=== PATIENT | male | born 1975 | race Caucasian/White ===

== ENCOUNTER 2020-09-01 16:49 | Inpatient (IN) ==
[2020-09-01] MEDS ORDERED: Ipratropium/Albuterol Neb 3 ML IH ONE (18:31)
[2020-09-01] MEDS ORDERED: 0.9 % Sodium Chloride 1,000 ML IVC ONE (18:31)
[2020-09-01 19:13] LABS: Basophils % 0.1 %; Eosinophils # 0.1 K/mcL (0.0-0.6); Eosinophils % 0.3 %; Hematocrit 39.2 % (37.5-50.1); Hemoglobin 12.6 g/dL (12.9-16.9); Lymphocytes # 0.9 K/mcL (0.6-4.6); Lymphocytes % 4.5 %; Mean Corpuscular HGB Conc 32.1 g/dL (31.6-35.5); Mean Corpuscular Hemoglobin 28.8 pg (28.0-33.3); Mean Corpuscular Volume 89.5 fL (83.0-100.0); Mean Platelet Volume 9.1 fL (9.4-12.4); Monocytes # 2.2 K/mcL (0.0-1.3); Monocytes % 11.5 %; Neutrophils # 15.7 K/mcL (1.6-8.9); Platelet Count 368 K/mcL (140-400); Red Blood Count 4.38 M/mcL (4.19-5.50); Red Cell Distribution Width 12.9 % (11.5-14.5); Segmented Neutrophils % 82.6 %; White Blood Count 18.9 K/mcL (4.3-11.1)
[2020-09-01 19:34] LABS: Alanine Aminotransferase 52 Units/L (7-52); Albumin 3.6 g/dL (3.5-5.7); Alkaline Phosphatase 140 Units/L (34-104); Aspartate Amino Transferase 22 Units/L (13-39); BUN/Creatinine Ratio 23 (6-26); Bilirubin,Direct 0.1 mg/dL (0.0-0.2); Bilirubin,Indirect 0.3 mg/dL (0.0-1.0); Bilirubin,Total 0.4 mg/dL (0.3-1.0); Blood Urea Nitrogen 16 mg/dL (6-20); Calcium 13.7 mg/dL (8.6-10.3); Carbon Dioxide 35 mEq/L (23-29); Chloride 90 mEq/L (98-107); Globulin 3.5 g/dL (2.4-3.5); Glucose 154 mg/dL (70-105); Osmolality,Calculated 274 (280-300); Potassium 4.1 mEq/L (3.5-5.1); Sodium 130 mEq/L (136-145); Total Protein 7.1 g/dL (6.4-8.9); Troponin I < 0.03 ng/mL (< 0.04); eGFR For African Americans > 60 (> 60); eGFR For Non-African Americans > 60 (> 60)
[2020-09-01] MEDS ORDERED: Dexamethasone 4 MG/ML VIAL IVP ONE (20:18)
[2020-09-01] MEDS ORDERED: Naloxone 0.4 MG/ML INJ IVP PRN (22:51)
[2020-09-01] MEDS ORDERED: Ondansetron 4 MG/2 ML VIAL IVP PRN (22:51)
[2020-09-01] MEDS ORDERED: Melatonin 3 MG TABLET PO PRN (22:51)
[2020-09-01] MEDS ORDERED: Zoledronic Acid (Zometa) 4 MG in 0.9 % Sodium Chloride 100 ML IV ONE (23:05)
[2020-09-01] MEDS: Nicotine 21 MG PATCH.TD24 TD SCH (23:48)
[2020-09-02 02:11] LABS: Basophils % 0.1 %; Eosinophils % 0.1 %; Hematocrit 38.7 % (37.5-50.1); Hemoglobin 12.5 g/dL (12.9-16.9); Immature Granulocytes % 0.7 % (0-4); Lymphocytes # 0.9 K/mcL (0.6-4.6); Lymphocytes % 5.4 %; Mean Corpuscular HGB Conc 32.3 g/dL (31.6-35.5); Mean Corpuscular Hemoglobin 29.1 pg (28.0-33.3); Monocytes # 2.1 K/mcL (0.0-1.3); Monocytes % 12.4 %; Neutrophils # 13.6 K/mcL (1.6-8.9); Platelet Count 342 K/mcL (140-400); Segmented Neutrophils % 81.3 %; White Blood Count 16.7 K/mcL (4.3-11.1)
[2020-09-02 02:20] LABS: INR 1.2; Prothrombin Time 13.7 Seconds (9.4-12.1)
[2020-09-02 02:39] LABS: Alanine Aminotransferase 45 Units/L (7-52); Albumin 3.4 g/dL (3.5-5.7); Alkaline Phosphatase 121 Units/L (34-104); Aspartate Amino Transferase 18 Units/L (13-39); BUN/Creatinine Ratio 22 (6-26); Bilirubin,Total 0.4 mg/dL (0.3-1.0); Blood Urea Nitrogen 16 mg/dL (6-20); Calcium 14.2 mg/dL (8.6-10.3); Carbon Dioxide 36 mEq/L (23-29); Chloride 95 mEq/L (98-107); Globulin 3.4 g/dL (2.4-3.5); Glucose 111 mg/dL (70-105); Magnesium 1.8 mg/dL (1.6-2.6); Osmolality,Calculated 280 (280-300); Phosphorous 3.1 mg/dL (2.7-4.5); Potassium 4.3 mEq/L (3.5-5.1); Sodium 134 mEq/L (136-145); Total Protein 6.8 g/dL (6.4-8.9); eGFR For African Americans > 60 (> 60); eGFR For Non-African Americans > 60 (> 60)
[2020-09-02] MEDS: Ipratropium/Albuterol Neb 3 ML IH SCH ×4 (05:03→22:58)
[2020-09-02] MEDS: Dexamethasone 4 MG/ML VIAL IVP SCH ×4 (05:06→23:48)
[2020-09-02 07:04] LABS: Bilirubin,Urine Negative (Negative); Blood,Urine Negative (Negative); Clarity,Urine Clear (Clear); Color,Urine Colorless (Yellow); Glucose,Urine (UA) Normal (Normal); Ketones,Urine Negative (Negative); Leukocyte Esterase,Urine Negative (Negative); Nitrite,Urine Negative (Negative); PH,Urine 6.5 pH Units (5.0-8.0); Protein,Urine Negative (Neg-Trace); Specific Gravity,Urine 1.007 (1.010-1.025); Urobilinogen,Urine Normal (Normal)
[2020-09-02] MEDS ORDERED: 0.9 % Sodium Chloride 1,000 ML IVC SCH (07:30)
[2020-09-02] MEDS: Nicotine 21 MG PATCH.TD24 TD SCH (08:07)
[2020-09-02] MEDS: 0.9 % Sodium Chloride 1,000 ML IVC SCH ×4 (10:52→23:47)
[2020-09-02] MEDS: lamoTRIgine 100 MG TABLET PO SCH ×2 (10:53→20:23)
[2020-09-02 14:45] LABS: Alanine Aminotransferase 45 Units/L (7-52); Albumin 3.4 g/dL (3.5-5.7); Albumin/Globulin Ratio 1.1 (1.1-2.2); Alkaline Phosphatase 132 Units/L (34-104); Aspartate Amino Transferase 19 Units/L (13-39); BUN/Creatinine Ratio 23 (6-26); Bilirubin,Total 0.4 mg/dL (0.3-1.0); Blood Urea Nitrogen 21 mg/dL (6-20); Calcium 13.3 mg/dL (8.6-10.3); Carbon Dioxide 33 mEq/L (23-29); Chloride 94 mEq/L (98-107); Globulin 3.2 g/dL (2.4-3.5); Glucose 175 mg/dL (70-105); Osmolality,Calculated 281 (280-300); Potassium 4.1 mEq/L (3.5-5.1); Sodium 132 mEq/L (136-145); Total Protein 6.6 g/dL (6.4-8.9); eGFR For African Americans > 60 (> 60); eGFR For Non-African Americans > 60 (> 60)
[2020-09-02] MEDS: *HR* HYDROcodone/Acet 5/325 mg TABLET PO PRN (19:35)
[2020-09-02] MEDS: risperiDONE 1 MG TABLET PO SCH (20:22)
[2020-09-03] MEDS: 0.9 % Sodium Chloride 1,000 ML IVC SCH ×3 (03:45→18:22)
[2020-09-03] MEDS: Dexamethasone 4 MG/ML VIAL IVP SCH ×4 (03:46→22:30)
[2020-09-03] MEDS: *HR* HYDROcodone/Acet 5/325 mg TABLET PO PRN (03:54)
[2020-09-03 04:05] LABS: Basophils % 0.1 %; Eosinophils # 0.1 K/mcL (0.0-0.6); Eosinophils % 0.6 %; Hematocrit 39.9 % (37.5-50.1); Hemoglobin 12.8 g/dL (12.9-16.9); Immature Granulocytes % 0.7 % (0-4); Lymphocytes # 0.6 K/mcL (0.6-4.6); Lymphocytes % 3.9 %; Mean Corpuscular HGB Conc 32.1 g/dL (31.6-35.5); Mean Corpuscular Volume 90.3 fL (83.0-100.0); Mean Platelet Volume 8.9 fL (9.4-12.4); Monocytes # 1.8 K/mcL (0.0-1.3); Monocytes % 11.6 %; Neutrophils # 12.6 K/mcL (1.6-8.9); Platelet Count 315 K/mcL (140-400); Red Blood Count 4.42 M/mcL (4.19-5.50); Segmented Neutrophils % 83.1 %; White Blood Count 15.1 K/mcL (4.3-11.1)
[2020-09-03 04:09] LABS: VBG Ionized Calcium 1.53 mmol/L (1.15-1.35)
[2020-09-03] MEDS: Ipratropium/Albuterol Neb 3 ML IH SCH ×4 (04:15→23:08)
[2020-09-03 04:20] LABS: BUN/Creatinine Ratio 25 (6-26); Blood Urea Nitrogen 19 mg/dL (6-20); Calcium 11.3 mg/dL (8.6-10.3); Carbon Dioxide 31 mEq/L (23-29); Chloride 96 mEq/L (98-107); Glucose 162 mg/dL (70-105); Osmolality,Calculated 276 (280-300); Potassium 3.9 mEq/L (3.5-5.1); Sodium 130 mEq/L (136-145); eGFR For African Americans > 60 (> 60); eGFR For Non-African Americans > 60 (> 60)
[2020-09-03] MEDS: Nicotine 21 MG PATCH.TD24 TD SCH (08:24)
[2020-09-03] MEDS: risperiDONE 1 MG TABLET PO SCH ×2 (08:24→21:25)
[2020-09-03] MEDS: PARoxetine 20 MG TABLET PO SCH (08:24)
[2020-09-03] MEDS: lamoTRIgine 100 MG TABLET PO SCH ×2 (08:30→21:25)
[2020-09-04] MEDS: *HR* HYDROcodone/Acet 5/325 mg TABLET PO PRN ×3 (01:54→21:42)
[2020-09-04] MEDS: Ipratropium/Albuterol Neb 3 ML IH SCH ×4 (04:12→22:54)
[2020-09-04 04:30] LABS: Basophils % 0.1 %; Eosinophils % 0.1 %; Hemoglobin 11.4 g/dL (12.9-16.9); Immature Granulocytes % 0.9 % (0-4); Lymphocytes # 0.8 K/mcL (0.6-4.6); Lymphocytes % 5.7 %; Mean Corpuscular HGB Conc 31.7 g/dL (31.6-35.5); Mean Corpuscular Hemoglobin 28.9 pg (28.0-33.3); Mean Corpuscular Volume 91.4 fL (83.0-100.0); Monocytes # 1.7 K/mcL (0.0-1.3); Monocytes % 12.1 %; Neutrophils # 11.2 K/mcL (1.6-8.9); Platelet Count 279 K/mcL (140-400); Red Blood Count 3.94 M/mcL (4.19-5.50); Red Cell Distribution Width 13.2 % (11.5-14.5); Segmented Neutrophils % 81.1 %; White Blood Count 13.8 K/mcL (4.3-11.1)
[2020-09-04 04:44] LABS: VBG Ionized Calcium 1.37 mmol/L (1.15-1.35)
[2020-09-04 05:17] LABS: BUN/Creatinine Ratio 22 (6-26); Blood Urea Nitrogen 13 mg/dL (6-20); Calcium 9.9 mg/dL (8.6-10.3); Carbon Dioxide 28 mEq/L (23-29); Chloride 99 mEq/L (98-107); Glucose 268 mg/dL (70-105); Osmolality,Calculated 284 (280-300); Potassium 3.7 mEq/L (3.5-5.1); Sodium 132 mEq/L (136-145); eGFR For African Americans > 60 (> 60); eGFR For Non-African Americans > 60 (> 60)
[2020-09-04] MEDS: 0.9 % Sodium Chloride 1,000 ML IVC SCH (05:40)
[2020-09-04] MEDS: Dexamethasone 4 MG/ML VIAL IVP SCH ×4 (05:42→21:43)
[2020-09-04] MEDS: Ibuprofen 600 MG TABLET PO PRN ×2 (06:47→18:16)
[2020-09-04] MEDS: Nicotine 21 MG PATCH.TD24 TD SCH (08:29)
[2020-09-04] MEDS: lamoTRIgine 100 MG TABLET PO SCH ×2 (08:29→21:40)
[2020-09-04] MEDS: risperiDONE 1 MG TABLET PO SCH ×2 (08:29→21:41)
[2020-09-04] MEDS: PARoxetine 20 MG TABLET PO SCH (08:30)
[2020-09-04] MEDS ORDERED: 0.9 % Sodium Chloride 1,000 ML IVC SCH (11:56)
[2020-09-05 03:06] VITALS: BP 127/70
[2020-09-05 03:39] LABS: VBG Ionized Calcium 1.33 mmol/L (1.15-1.35)
[2020-09-05 03:54] LABS: BUN/Creatinine Ratio 20 (6-26); Blood Urea Nitrogen 12 mg/dL (6-20); Calcium 10.1 mg/dL (8.6-10.3); Carbon Dioxide 32 mEq/L (23-29); Chloride 96 mEq/L (98-107); Glucose 322 mg/dL (70-105); Osmolality,Calculated 286 (280-300); Potassium 3.8 mEq/L (3.5-5.1); Sodium 132 mEq/L (136-145); eGFR For African Americans > 60 (> 60); eGFR For Non-African Americans > 60 (> 60)
[2020-09-05] MEDS: Ipratropium/Albuterol Neb 3 ML IH SCH ×2 (04:16→10:43)
[2020-09-05] MEDS: Dexamethasone 4 MG/ML VIAL IVP SCH (04:35)
[2020-09-05] MEDS: *HR* HYDROcodone/Acet 5/325 mg TABLET PO PRN (04:47)
[2020-09-05] MEDS: PARoxetine 20 MG TABLET PO SCH (08:59)
[2020-09-05] MEDS: Nicotine 21 MG PATCH.TD24 TD SCH (08:59)
[2020-09-05] MEDS: lamoTRIgine 100 MG TABLET PO SCH (08:59)
[2020-09-05] MEDS: risperiDONE 1 MG TABLET PO SCH (09:00)
[2020-09-05 09:29] LABS: Lactate Dehydrogenase 394 Units/L (140-271)
== END 2020-09-05 11:15 | disposition home or self-care (01) | DRG 641 ==
LOC: 2NENU 16:49 → EMEROOARM 16:49 → SUATTDRO 20:57 → 2NENU 22:34
PROVIDERS: ADMIT Family Medicine; ATTEND Internal Medicine